=== PATIENT | male | born 1945 | race Caucasian/White ===

== ENCOUNTER → 2023-10-30 | Outpatient (CLI) | payer MEDICARE | END | disposition home or self-care (01) | LOC: RESCLI 13:47 | PROVIDERS: ATTEND Family Medicine | DX: I11.0 Hypertensive heart disease with heart failure (principal); I50.20 Unspecified systolic (congestive) heart failure; M10.9 Gout, unspecified; I26.99 Other pulmonary embolism without acute cor pulmonale; G47.00 Insomnia, unspecified; M19.90 Unspecified osteoarthritis, unspecified site; I48.91 Unspecified atrial fibrillation; E78.00 Pure hypercholesterolemia, unspecified; Z79.899 Other long term (current) drug therapy ==